=== PATIENT | female | born 1945 | race Caucasian/White ===

== ENCOUNTER 2017-11-21 11:18 | Emergency (ER) | payer MEDICARE, OTHER ==
[~2017-11-21] VITALS: Ht 149.9 cm; Wt 61.2 kg
[2017-11-21 12:19] VITALS: BP 135/81
== END 2017-11-21 14:46 | disposition home or self-care (01) ==
LOC: ER 11:19
DX: S52.592D Other fractures of lower end of left radius, subsequent encounter for closed fracture with routine healing (principal); S52.692D Other fracture of lower end of left ulna, subsequent encounter for closed fracture with routine healing; M79.89 Other specified soft tissue disorders; W01.0XXD Fall on same level from slipping, tripping and stumbling without subsequent striking against object, subsequent encounter; I10 Essential (primary) hypertension
CPT/HCPCS: 73110; A4606; Z7610